=== PATIENT | female | born 1930 | race Two or more races ===

== ENCOUNTER 2016-09-02 17:00 | Emergency (ER) | payer OTHER ==
[~2016-09-02] VITALS: Ht 152.4 cm; Wt 37.6 kg
[2016-09-02 17:33] VITALS: BP 100/55
[2016-09-02] MEDS ORDERED: Bacitracin Oint UD TOPIC ONE (18:38)
[2016-09-02] MEDS ORDERED: KEFLEX500 MG ORAL (19:03)
[2016-09-02] MEDS ORDERED: TYLENOL EXTRA500 MG ORAL (19:03)
[2016-09-02 19:05] VITALS: BP 102/55
--- NOTE | 2016-09-02 21:49 | Emergency Room Report ---
History of Present Illness General Chief Complaint: Upper Extremity Injury Source: Patient Present Illness HPI 86-year-old female presents to ED complaining of right hand pain. States while at store today her hand was caught between forklift and the wall. Notes that she felt her hand crushed. Tetanus up-to-date. Notes some pain and bleeding from her hand. Pain is sharp. 10 out of 10. Nonradiating. No other aggravating relieving factors. Denies any other injuries. Denies any other associated symptoms Allergies: Coded Allergies: No Known Allergies (Unverified , 09/02/16) Patient History Past Medical History: none Past Surgical History: none Pertinent Family History: none Social History: Denies: alcohol use, drug use, smoking Now: No Immunizations: UTD Reviewed Nursing Documentation: PMH: Agreed, PSxH: Agreed Nursing Documentation-PMH Past Medical History: No Stated History Review of Systems All Other Systems: negative except mentioned in HPI Physical Exam Vital Signs Date Time Temp Pulse Resp B/P Pulse Ox O2 Delivery O2 Flow Rate FiO2 09/02/16 17:19 98.4 76 17 100/55 98 Room Air Sp02 EP Interpretation: reviewed, normal General Appearance: no apparent distress, alert, GCS 15, non-toxic Head: normocephalic Eyes: bilateral eye PERRL, bilateral eye normal inspection ENT: normal ENT inspection Neck: normal inspection Respiratory: normal inspection Cardiovascular #1: normal inspection Gastrointestinal: normal inspection Rectal: deferred Genitourinary: no CVA tenderness Musculoskeletal: swelling - 2nd, 3rd, 4th fingers R hand. skin tears noted to 2nd and 3rd fingers. Neurologic: alert, oriented x3, responsive, motor strength/tone normal, sensory intact, speech normal Psychiatric: normal inspection Skin: normal inspection Lymphatic: normal inspection Procedures Splinting Splinting : Consent: Verbal Pre-Made Type: metal Splint: finger splints 2nd and 3rd fingers Pre-Proc Neuro Vasc Exam: normal Post-Proc Neuro Vasc Exam: normal Patient Tolerated: Well Complications: None Medical Decision Making Diagnostic Impression: Primary Impression: Crush injury Additional Impression: Injury of upper extremity Qualified Codes: S49.91XA - Unspecified injury of right shoulder and upper arm , initial encounter ER Course Hospital Course 86-year-old female presents to ED with pain and bleeding to the right hand status post crush injury Differential diagnoses include: Fracture, dislocation, sprain, contusion Clinical course Patient placed on stretcher. After initial history and physical, I ordered pain medications and Xrays of R hand Xrays prelim read shows no acute fracture/dislocation. The skin tears a superficial and not amenable to suturing. Wounds irrigated. A splint and dressing applied. Diagnosis - crush injury Stable and discharged to home with prescription for Tylenol, Keflex. apply ice , keep elevated. weight bear as tolerated. Followup with PMD. Return to ED if symptoms recur or worsen Other X-Ray Diagnostic Results Other X-Ray Diagnostic Results : X-Ray Ordered: R hand EP Interpretation: Yes Findings: no fractures, no dislocation Number of Views: 3 Last Vital Signs Date Time Temp Pulse Resp B/P Pulse Ox O2 Delivery O2 Flow Rate FiO2 09/02/16 19:05 98.4 71 17 102/55 98 Room Air Status: improved Disposition: HOME, SELF-CARE Condition: Stable Scripts Cephalexin* (KEFLEX*) 500 Mg Capsule 500 MG ORAL Q6H, #28 CAP 0 Refills Prov: LIV HERNANDEZ M.D. 09/02/16 Acetaminophen* (TYLENOL EXTRA STRENGTH*) 500 Mg Tablet 500 MG ORAL Q8H Y for Prn Headache/Temp > 101, #30 TAB 0 Refills Prov: LIV HERNANDEZ M.D. 09/02/16 Referrals: NOT CHOSEN IPA/,REFERRING (PCP) Patient Instructions: Crush Injury, Fingers or Toes, [id number] LIV HERNANDEZ M.D. Sep 02, 2016 21:49
--- NOTE | 2016-09-03 10:36 | Diagnostic Imaging Report ---
Indication: pain Findings: 3 views of the right hand were obtained. There is no fracture identified. Bones are osteopenic. Generalized joint space narrowing noted and minimal marginal spur formation in several locations throughout the hand and wrist. Impression: No acute injury identified Osteoarthritis
== END 2016-09-02 19:20 | disposition home or self-care (01) ==
LOC: EMR 19:01
DX: S67.21XA Crushing injury of right hand, initial encounter (principal); S61.210A Laceration without foreign body of right index finger without damage to nail, initial encounter; S61.212A Laceration without foreign body of right middle finger without damage to nail, initial encounter; S61.214A Laceration without foreign body of right ring finger without damage to nail, initial encounter; W23.0XXA Caught, crushed, jammed, or pinched between moving objects, initial encounter; Y92.512 Supermarket, store or market as the place of occurrence of the external cause; M19.041 Primary osteoarthritis, right hand
CPT/HCPCS: 29280; 99284